=== PATIENT | male | born 2000 | race Two or more races ===

== ENCOUNTER 2021-11-07 23:01 | Emergency (ER) | payer SELFPAY ==
[~2021-11-07] VITALS: Ht 162.6 cm; Wt 49.9 kg
[2021-11-07 23:41] VITALS: BP 124/55
== END 2021-11-07 23:59 ==
LOC: ER 23:01
DX: F10.10 Alcohol abuse, uncomplicated (principal); V43.52XA Car driver injured in collision with other type car in traffic accident, initial encounter; Y93.89 Activity, other specified; Y92.89 Other specified places as the place of occurrence of the external cause; Y99.8 Other external cause status